=== PATIENT | male | born 1960 | race Caucasian/White ===

== ENCOUNTER → 2018-11-02 06:42 | Outpatient (CLI) | payer OTHER, SELFPAY ==
--- NOTE | 2018-11-02 | DI.ECHO.S_ITS ---
[facility]---------+ [facility] +---------+ : : [address] : [address] [address] : : : : [id number] : : : : Phone: [phone] +---------+ Echocardiogram Report + + :Name: SHELBY TOTH Study Date: 11/02/2018 Height: 74 in : :[facility] Exam Location: IS Weight: 250 lb : : Gender: Male BSA: 2.4 m2 : :: 1960 Age: 58 yrs BP: 130/70 mmHg: :Reason For Study: Murmur : :Ordering Physician: Dr. Dwyer : :Alfred Performed By: Ammy Page : + + Interpretation Summary 1) Moderately enlarged left ventricle with low normal systolic function (EF 50-55%). 2) Normal right ventricular size and function. 3) Both atria are severely dilated. 4) There is an eccentric jet of aortic insufficiency directed against the anterior mitral leaflet. 5) The aortic regurgitation is incompletely characterized given eccentricity of the jet but suspect at least moderate regurgitation. Aortic valve appear trileaflet. 6) The aortic root is mildly dilated at 4.2cm. The ascending aorta is mild- moderately enlarged at 4.2cm. 7) No prior Echo available for comparison. Recommend cardiology consult to further evaluation aortic regurgitation. Procedure: A two-dimensional transthoracic echocardiogram with color flow and Doppler was performed. The study quality was technically adequate. There is no prior echocardiogram noted for this patient. The heart rate ranged between 46-64 bpm during the study. The patient had occasional PVCs during the exam. Left Ventricle: The left ventricle is moderately dilated. Left ventricular wall thickness is borderline increased. The ejection fraction is estimated to be 50-55%. There are no focal wall motion abnormalities. Right Ventricle: The right ventricle is normal size. Right ventricular systolic function is at the lower limits of normal. Atria: Both atria are severely dilated. There is no Doppler evidence for an interatrial shunt. Mitral Valve: The mitral valve is normal in structure and function. There is trace mitral regurgitation. Aortic Valve: The aortic valve is trileaflet. The aortic valve opens well. There is no aortic valve stenosis. There is an eccentric jet of aortic insufficiency directed against the anterior mitral leaflet. Suspect at least moderate regurgitation. Tricuspid Valve: The tricuspid valve is normal in structure and function. There is a trace or physiologic amount of tricuspid regurgitation. Pulmonary artery pressures cannot be estimated because of the lack of a measurable TR jet velocity. Pulmonic Valve: The pulmonic valve is not well visualized. There is no pulmonic valvular regurgitation. Great Vessels: The aortic root is mildly dilated. The ascending aorta is mild-moderately enlarged. The aortic arch is at the upper limits of normal in size. The pulmonary artery is not well visualized, but is probably normal size. The IVC is of normal diameter and collapses greater than 50% with a sniff. This suggests a low right atrial pressure of 3 mm Hg. Pericardium/ Pleura There is no pericardial effusion. There is no pleural effusion. MMode/2D Measurements & Calculations LVIDd: 6.7 cm LVOT diam: 2.8 cm LVIDs: 5.0 cm Ao root diam: 4.2 cm FS: 25.4 % asc Aorta Diam: 4.2 cm EPSS: 1.6 cm Ao Arch Diam (Prox Trans): 3.2 cm IVSd: 1.0 cm LVPWd: 1.3 cm LV boogie. diameter/BSA (cm/m^2): 2.8 LV sys. diameter/BSA (cm/m^2): 2.1 LA A2 area: 37.8 cm2 RA long axis: 5.1 cm LA A4 area: 33.9 cm2 RA area: 26.4 cm2 LA length (vol): 7.1 cm RA vol: 116.1 ml LA vol: 153.2 ml RA : 48.6 ml/m2 LA vol index: 64.1 ml/m2 IVC diam: 2.0 cm RVD1 (basal): 4.1 cm RVD2 (mid): 3.6 cm Doppler Measurements & Calculations Ao V2 max: 175.0 cm/sec LVOT Max Ammon: 131.4 cm/sec Ao V2 mean: 121.1 cm/sec LV V1 max P.9 mmHg Ao max P.3 mmHg LV V1 VTI: 29.7 cm Ao mean P.6 mmHg DEBBIE(I,D): 4.7 cm2 Ao V2 VTI: 38.3 cm DEBBIE(V,D): 4.6 cm2 sev ratio: 0.78 DEBBIE indexed to BSA (cm^2/m^2): 2.0 AI P1/2t: 341.3 msec AI dec slope: 276.8 cm/sec2 MV E max ammon: 76.5 cm/sec PA V2 max: 62.9 cm/sec MV A max ammon: 29.1 cm/sec PA V2 mean: 46.5 cm/sec MV E/A: 2.6 PA mean P.95 mmHg Med Peak E' Ammon: 6.0 cm/sec PA Accel Time: 0.15 sec E/E' med: 12.8 Lat Peak E' Ammon: 10.7 cm/sec E/E' lat: 7.1 E/e' average: 10.0 MV dec time: 0.14 sec MV P1/2t: 38.3 msec MV P1/2t max ammon: 76.2 cm/sec SV(LVOT): 181.4 ml MVA(P1/2t): 5.7 cm2 Reading Physician:08:53 AM
== END ==
PROVIDERS: PCP Internal Medicine; Visit Provider Internal Medicine
DX: R01.1 Cardiac murmur, unspecified (principal); I77.89 Other specified disorders of arteries and arterioles
CPT/HCPCS: 93306

== ENCOUNTER → 2019-05-17 07:54 | Outpatient (CLI) | payer OTHER, SELFPAY ==
--- NOTE | 2019-05-17 | DI.ECHO.S_ITS ---
[place] +---------+ [facility] +---------+ : : [address] : [address] [address] : : : : [phone] : : : : Phone: [phone]---------+ Echocardiogram Report + + :Name: SHELBY TOTH Study Date: 05/17/2019 Height: 74 in : :[facility] Weight: 250 lb : : Gender: Male BSA: 2.4 m2 : :: 1960 Age: 58 yrs BP: 132/74 mmHg: :Reason For Study: Aortic valve regurgitation : : Performed By: [facility] Staff : :Referring: CELINA DAILY : + + Interpretation Summary 1) Moderately dilated left ventricle with normal systolic function (EF about 55%). 2) Normal right ventricular size and function. 3) The left atrium is severely dilated. 4) There is probable moderate to severe aortic regurgitation, which is eccentric jet and directed against the anterior mitral leaflet. Etiology unclear. Aortic valve itself appears trileaflet. 5) The aortic root is mildly dilated at 4.0cm. 6) Compared to the Echo done 11/02/2018, no significant change. Procedure: A two-dimensional transthoracic echocardiogram with color flow and Doppler was performed. The study quality was technically adequate. Prior echo performed on 11/02/18. The patient was in normal sinus rhythm during the exam. Left Ventricle: The left ventricle is moderately dilated. There is mild concentric left ventricular hypertrophy. Left ventricular systolic function is normal. Left ventricular ejection fraction is estimated to be 55 +/- 5%. Left ventricular wall motion is normal. Right Ventricle: The right ventricle is normal in size and function. Atria: The left atrium is severely dilated. Right atrial size is normal. The interatrial septum is intact with no evidence for an atrial septal defect. Mitral Valve: The mitral valve is normal in structure and function. There is trace mitral regurgitation. Aortic Valve: The aortic valve is probably trileaflet. The aortic valve opens well. There is no aortic valve stenosis. There is moderate to severe aortic regurgitation. There is an eccentric jet of aortic insufficiency directed against the anterior mitral leaflet. Tricuspid Valve: The tricuspid valve is normal in structure and function. There is trace tricuspid regurgitation. Pulmonary artery pressures cannot be estimated because of the lack of a measurable TR jet velocity. Pulmonic Valve: The pulmonic valve is normal in structure and function. There is trace pulmonic regurgitation. Great Vessels: The aortic root is mildly dilated. The ascending aorta is mildly enlarged. The aortic arch is mildly enlarged. The pulmonary artery is normal size. The IVC is of normal diameter and collapses greater than 50% with a sniff. This suggests a low right atrial pressure of 3 mm Hg. Pericardium/ Pleura There is no pericardial effusion. There is no pleural effusion. MMode/2D Measurements & Calculations LVIDd: 6.6 cm LVOT diam: 2.5 cm LVIDs: 4.6 cm Ao root diam: 4.0 cm FS: 30.6 % asc Aorta Diam: 4.0 cm EPSS: 1.5 cm IVSd: 1.6 cm LVPWd: 1.2 cm LV boogie. diameter/BSA (cm/m^2): 2.8 LV sys. diameter/BSA (cm/m^2): 1.9 LA A2 area: 28.5 cm2 RA long axis: 4.7 cm LA A4 area: 32.6 cm2 RA area: 16.6 cm2 LA length (vol): 6.5 cm RA vol: 49.6 ml LA vol: 121.2 ml RA : 20.8 ml/m2 LA vol index: 50.7 ml/m2 IVC diam: 1.4 cm TAPSE: 2.4 cm Doppler Measurements & Calculations Ao V2 max: 184.9 cm/sec LVOT Max Ammon: 159.0 cm/sec Ao V2 mean: 131.3 cm/sec LV V1 max P.1 mmHg Ao max P.7 mmHg LV V1 VTI: 41.7 cm Ao mean P.9 mmHg DEBBIE(I,D): 4.5 cm2 Ao V2 VTI: 45.9 cm DEBBIE(V,D): 4.3 cm2 sev ratio: 0.91 DEBBIE indexed to BSA (cm^2/m^2): 1.9 AI P1/2t: 278.0 msec AI dec slope: 472.1 cm/sec2 MV E max ammon: 79.3 cm/sec PA V2 max: 84.5 cm/sec MV A max ammon: 35.3 cm/sec PA V2 mean: 59.5 cm/sec MV E/A: 2.2 PA mean P.6 mmHg Med Peak E' Ammon: 6.9 cm/sec PA Accel Time: 0.15 sec E/E' med: 11.5 Lat Peak E' Ammon: 10.2 cm/sec E/E' lat: 7.7 E/e' average: 9.6 MV dec time: 0.18 sec SV(LVOT): 207.4 ml Reading Physician:11:11 AM
== END ==
PROVIDERS: PCP Internal Medicine; Visit Provider Internal Medicine Cardiovascular Disease
DX: I35.1 Nonrheumatic aortic (valve) insufficiency (principal); I77.810 Thoracic aortic ectasia; I51.7 Cardiomegaly
CPT/HCPCS: 93306

== ENCOUNTER → 2020-05-14 19:34 | Outpatient (ROUT) | payer OTHER, SELFPAY ==
[2020-05-14 20:02] LABS: Aspartate Aminotransferase 29 IU/L (17-59); Blood Urea Nitrogen 21 mg/dL (9-20); Calcium 9.3 mg/dL (8.4-10.2); Carbon Dioxide 29 mmol/L (22-32); Chloride 105 mmol/L (98-107); Cholesterol 202 mg/dL (140-199); Estimated Glomerular Filt Rate > 60.0 mL/min (>60); Glucose 92 mg/dL (70-100); HDL Cholesterol 48 mg/dL (40-60); HEMOLYSIS < 15 (0-50); LDL Cholesterol Calculated 114 mg/dL (<100); Potassium 4.2 mmol/L (3.4-5.1); Sodium 138 mmol/L (137-145); Triglycerides 198 mg/dL (35-150)
== END ==
PROVIDERS: PCP Internal Medicine; Visit Provider Internal Medicine
DX: Z03.818 Encounter for observation for suspected exposure to other biological agents ruled out (principal); E78.2 Mixed hyperlipidemia; I10 Essential (primary) hypertension
CPT/HCPCS: 80048; 80061; 84450; 86769

== ENCOUNTER → 2020-09-12 07:54 | Outpatient (CLI) | payer OTHER, SELFPAY ==
[2020-09-12] MEDS: COVID-19 VACC #1, MRNA(MOD) 100 MCG/0.5 ML VIAL IM (08:02)
== END ==
PROVIDERS: PCP Internal Medicine; Visit Provider Internal Medicine
DX: Z23 Encounter for immunization (principal)
CPT/HCPCS: 0011A; 91301

== ENCOUNTER → 2020-10-10 07:52 | Outpatient (CLI) | payer OTHER, SELFPAY ==
[2020-10-10] MEDS: COVID-19 VACC #2, MRNA(MOD) 100 MCG/0.5 ML VIAL IM (07:59)
== END ==
PROVIDERS: PCP Internal Medicine; Visit Provider Internal Medicine
DX: Z23 Encounter for immunization (principal)
CPT/HCPCS: 0012A; 91301

== ENCOUNTER → 2020-11-22 18:49 | Outpatient (ROUT) | payer OTHER, SELFPAY ==
[2020-11-22 19:18] LABS: Aspartate Aminotransferase 33 IU/L (17-59); BUN Creatinine Ratio 21.7 (6-22); Blood Urea Nitrogen 15 mg/dL (9-20); Calcium 9.4 mg/dL (8.4-10.2); Carbon Dioxide 26 mmol/L (22-32); Chloride 106 mmol/L (98-107); Cholesterol 185 mg/dL (140-199); Estimated Glomerular Filt Rate > 60.0 mL/min (>60); Glucose 101 mg/dL (80-110); HDL Cholesterol 49 mg/dL (40-60); HEMOLYSIS < 15 (0-50); LDL Cholesterol Calculated 117 mg/dL (<100); Potassium 4.3 mmol/L (3.4-5.1); Sodium 138 mmol/L (137-145); Triglycerides 93 mg/dL (35-150)
[2020-11-22 19:47] LABS: Prostate Specific Antigen 0.438 ng/mL (0.10-4.00)
== END ==
PROVIDERS: PCP Internal Medicine; Visit Provider Internal Medicine
DX: Z00.00 Encounter for general adult medical examination without abnormal findings (principal); I10 Essential (primary) hypertension; E78.2 Mixed hyperlipidemia
CPT/HCPCS: 80048; 80061; 84153; 84450

== ENCOUNTER → 2022-10-08 11:55 | Outpatient (CLI) | payer OTHER, SELFPAY ==
[2022-10-08 13:08] LABS: Hematocrit 45.5 % (41-53); Hemoglobin 15.7 g/dL (13.5-17.5); Mean Corpuscular HGB Conc 34.4 % (30-36); Mean Corpuscular Hemoglobin 29.5 PG (26-34); Mean Corpuscular Volume 85.7 fL (80-100); Platelet Count 242 X10^3/uL (150-400); Red Blood Cell Count 5.31 X10^6/uL (4.5-5.9); Red Cell Distribution Width 13.8 % (11.6-14.8); White Blood Cell Count 5.2 X10^3/uL (4.5-11.0)
[2022-10-08 13:33] LABS: Alanine Aminotransferase 39 IU/L (<50); Albumin 4.7 g/dL (3.5-5.0); Albumin Globulin Ratio 1.5 (1.0-2.8); Alkaline Phosphatase 67 U/L (38-126); Aspartate Aminotransferase 27 IU/L (17-59); BUN Creatinine Ratio 21.1 (6-22); Bilirubin Total 1.3 mg/dL (0.2-1.3); Blood Urea Nitrogen 15 mg/dL (9-20); Calcium 9.1 mg/dL (8.4-10.2); Carbon Dioxide 25 mmol/L (22-32); Chloride 103 mmol/L (98-107); Cholesterol 211 mg/dL (140-199); Estimated Glomerular Filt Rate > 60 mL/min (>60); Globulin 3.1 g/dL (1.7-4.1); Glucose 90 mg/dL (80-110); HDL Cholesterol 44 mg/dL (40-60); HEMOLYSIS < 15 (0-50); LDL Cholesterol Calculated 133 mg/dL (<100); Sodium 137 mmol/L (137-145); Total Protein 7.8 g/dL (6.3-8.2); Triglycerides 171 mg/dL (35-150)
[2022-10-08 13:53] LABS: Prostate Specific Antigen Scrn 0.589 ng/mL (0.1-4.0)
[2022-10-08 14:32] LABS: TSH w/ Reflex to FT4 0.89 uIU/mL (0.47-4.68)
== END ==
PROVIDERS: PCP Internal Medicine; Referring Provider Internal Medicine; Visit Provider Internal Medicine
DX: Z00.00 Encounter for general adult medical examination without abnormal findings (principal); E78.2 Mixed hyperlipidemia; I10 Essential (primary) hypertension; I35.1 Nonrheumatic aortic (valve) insufficiency; Z12.5 Encounter for screening for malignant neoplasm of prostate
CPT/HCPCS: 36415; 80053; 80061; 84443; 85027; G0103

== ENCOUNTER → 2023-10-12 09:29 | Outpatient (CLI) | payer OTHER, SELFPAY ==
[2023-10-12 10:22] LABS: Hematocrit 46.2 % (41-53); Hemoglobin 15.6 g/dL (13.5-17.5); Mean Corpuscular HGB Conc 33.8 % (30-36); Mean Corpuscular Hemoglobin 29.3 PG (26-34); Mean Corpuscular Volume 86.8 fL (80-100); Platelet Count 259 X10^3/uL (150-400); Red Blood Cell Count 5.33 X10^6/uL (4.5-5.9); Red Cell Distribution Width 13.8 % (11.6-14.8)
[2023-10-12 10:59] LABS: Alanine Aminotransferase 33 IU/L (<50); Albumin 4.7 g/dL (3.5-5.0); Albumin Globulin Ratio 1.7 (1.0-2.8); Alkaline Phosphatase 67 U/L (38-126); Aspartate Aminotransferase 27 IU/L (17-59); BUN Creatinine Ratio 20.7 (6-22); Bilirubin Total 1.4 mg/dL (0.2-1.3); Blood Urea Nitrogen 17 mg/dL (9-20); Calcium 9.4 mg/dL (8.4-10.2); Carbon Dioxide 26 mmol/L (22-32); Chloride 107 mmol/L (98-107); Cholesterol 178 mg/dL (140-199); Estimated Glomerular Filt Rate > 60 mL/min (>60); Globulin 2.7 g/dL (1.7-4.1); Glucose 96 mg/dL (80-110); HDL Cholesterol 46 mg/dL (40-60); HEMOLYSIS < 15 (0-50); LDL Cholesterol Calculated 106 mg/dL (<100); Potassium 4.5 mmol/L (3.4-5.1); Sodium 138 mmol/L (137-145); Total Protein 7.4 g/dL (6.3-8.2); Triglycerides 131 mg/dL (35-150)
[2023-10-12 11:21] LABS: Prostate Specific Antigen Scrn 0.686 ng/mL (0.1-4.0)
== END ==
PROVIDERS: PCP Internal Medicine; Referring Provider Internal Medicine; Visit Provider Internal Medicine
DX: Z12.5 Encounter for screening for malignant neoplasm of prostate (principal); E78.2 Mixed hyperlipidemia; I35.1 Nonrheumatic aortic (valve) insufficiency; I10 Essential (primary) hypertension
CPT/HCPCS: 36415; 80053; 80061; 85027; G0103

== ENCOUNTER → 2023-10-26 12:05 | Outpatient (CLI) | payer OTHER, SELFPAY ==
--- NOTE | 2023-10-26 12:06 | DI.ECHO.S_ITS ---
[place] +---------+ [facility] : : [address] : : [place] : : [id number] : : Phone: [phone] Echocardiogram Report + + :Name: SHELBY TOTH Study Date: 10/26/2023 Height: 74 in : :Hospital ReadingLocation: Weight: 257 lb : : Gender: Male BSA: 2.4 m2 : :: 1960 Age: 63 yrs BP: 147/84 mmHg: :Reason For Study: AORTIC REGURGITATION : :Ordering Physician: BHARAT, : :WOJCIECH Performed By: Leslye Bunn : :Referring: WOJCIECH NICHOLSON : + + Interpretation Summary The patient was in atrial fibrillation with heart rates between 69-99 bpm during the exam. The left ventricle is severely dilated.LVIDd: 7.6 cm LVIDs: 5.8 cm In May 17, 2019:LVIDd: 6.6 cm LVIDs: 4.6 cm, that time LVEF about 55%. Patient was in sinus rhythm. The estimated left ventricular end diastolic volume is 253 ml. The ejection fraction is estimated to be 40-45%. Compared to the prior exam, the left ventricular function is reduced. There is mild to moderate global hypokinesis of the left ventricle. The right ventricle is normal size. Right ventricular systolic function is at the lower limits of normal. The left atrium is severely dilated. The left atrium has remained unchanged in size since the prior echo exam. Tented mitral leaflets. No obvious mitral valve prolapse or flail leaflet or significant calcification. There is mild to moderate mitral regurgitation. Compared to the prior echo study, there has been an increase in the severity of mitral regurgitation. Tricuspid aortic valve. Opens well. There is moderate aortic regurgitation. AI P1/2t: 498.7 msec Previously moderate to severe. No holosystolic diastolic reversal in descending thoracic aorta. There is mild tricuspid regurgitation. Pulmonary artery pressures cannot be estimated because of the lack of a measurable TR jet velocity. The IVC is of normal diameter and collapses greater than 50% with a sniff. This suggests a low right atrial pressure of 3 mm Hg. Ao root diam: 4.0 cm asc Aorta Diam: 4.0 cm. No significant change in aortic root diameter ascending aorta diameter.BSA: 2.4 m2 BP: 147/84 mmHg Procedure: A two-dimensional transthoracic echocardiogram with color flow and Doppler was performed. The study quality was technically adequate. Comparison is made with the echocardiogram of 05/17/2019. The patient had occasional PVCs during the exam. The patient was in atrial fibrillation with heart rates between 69-99 bpm during the exam. Left Ventricle: There is mild concentric left ventricular hypertrophy. The left ventricle is severely dilated. The estimated left ventricular end diastolic volume is 253 ml. There is no thrombus. The ejection fraction is estimated to be 40-45%. Compared to the prior exam, the left ventricular function is reduced. There is mild to moderate global hypokinesis of the left ventricle. Diastolic function could not be accurately assessed due to atrial fibrillation. E/E' med: 6.1. Right Ventricle: The right ventricle is normal size. Right ventricular systolic function is at the lower limits of normal. Atria: The left atrium is severely dilated. The left atrium has remained unchanged in size since the prior echo exam. The right atrium is borderline dilated. There is no Doppler evidence for an interatrial shunt. Mitral Valve: Tented mitral leaflets. No obvious mitral valve prolapse or flail leaflet or significant calcification. There is mild to moderate mitral regurgitation. Compared to the prior echo study, there has been an increase in the severity of mitral regurgitation. Aortic Valve: The aortic valve is trileaflet. The aortic valve opens well. There is no aortic valve stenosis. There is moderate aortic regurgitation. Tricuspid Valve: The tricuspid valve is normal in structure and function. There is mild tricuspid regurgitation. Pulmonary artery pressures cannot be estimated because of the lack of a measurable TR jet velocity. Pulmonic Valve: The pulmonic valve leaflets are thin and pliable; valve motion is normal. There is trace pulmonic regurgitation. Great Vessels: The aortic root is mildly dilated. The ascending aorta is mildly enlarged. The IVC is of normal diameter and collapses greater than 50% with a sniff. This suggests a low right atrial pressure of 3 mm Hg. Pericardium/ Pleura There is no pericardial effusion. There is no pleural effusion. MMode/2D Measurements & Calculations LVIDd: 7.6 cm LVOT diam: 2.6 cm LVIDs: 5.8 cm Ao root diam: 4.0 cm FS: 23.5 % asc Aorta Diam: 4.0 cm IVSd: 1.2 cm Ao Arch Diam (Prox Trans): 3.9 cm LVPWd: 1.1 cm LV boogie. diameter/BSA (cm/m^2): 3.1 LV sys. diameter/BSA (cm/m^2): 2.4 LA A2 area: 37.8 cm2 RA long axis: 5.3 cm LA A4 area: 37.0 cm2 RA area: 22.5 cm2 LA length (vol): 7.2 cm RA vol: 80.9 ml LA vol: 164.9 ml RA : 33.4 ml/m2 LA vol index: 68.2 ml/m2 IVC diam: 1.7 cm RVD1 (basal): 3.2 cm RVD2 (mid): 3.4 cm TAPSE: 1.7 cm Doppler Measurements & Calculations Ao V2 max: 174.4 cm/sec LVOT Max Ammon: 109.7 cm/sec Ao V2 mean: 129.6 cm/sec LV V1 max P.8 mmHg Ao max P.2 mmHg LV V1 VTI: 23.3 cm Ao mean P.3 mmHg DEBBIE(I,D): 3.4 cm2 Ao V2 VTI: 35.9 cm DEBBIE(V,D): 3.3 cm2 sev ratio: 0.65 DEBBIE indexed to BSA (cm^2/m^2): 1.4 AI P1/2t: 498.7 msec AI dec slope: 255.0 cm/sec2 MV E max ammon: 77.3 cm/sec PA V2 max: 74.5 cm/sec MV A max ammon: 1.6 cm/sec PA V2 mean: 48.0 cm/sec MV E/A: 49.6 PA mean P.1 mmHg Med Peak E' Ammon: 12.6 cm/sec PA pr(Accel): 31.0 mmHg E/E' med: 6.1 Lat Peak E' Ammon: 12.3 cm/sec E/E' lat: 6.3 E/e' average: 6.2 MV dec time: 0.15 sec SV(LVOT): 122.4 ml Reading Physician:03:15 PM
== END ==
LOC: ECHO 12:05
PROVIDERS: PCP Internal Medicine; Referring Provider Internal Medicine; Visit Provider Internal Medicine
DX: I08.3 Combined rheumatic disorders of mitral, aortic and tricuspid valves (principal); I77.810 Thoracic aortic ectasia; I77.89 Other specified disorders of arteries and arterioles
CPT/HCPCS: 93306

== ENCOUNTER → 2024-10-12 10:42 | Outpatient (CLI) | payer OTHER, SELFPAY ==
[2024-10-12 11:13] LABS: Hemoglobin 14.9 g/dL (13.5-17.5); White Blood Cell Count 3.5 X10^3/uL (4.5-11.0)
[2024-10-12 11:47] LABS: Alanine Aminotransferase 29 IU/L (<50); Albumin 4.7 g/dL (3.5-5.0); Albumin Globulin Ratio 2.1 (1.0-2.8); Alkaline Phosphatase 70 U/L (38-126); Aspartate Aminotransferase 31 IU/L (17-59); BUN Creatinine Ratio 21.3 (6-22); Bilirubin Total 0.8 mg/dL (0.2-1.3); Blood Urea Nitrogen 19 mg/dL (9-20); Calcium 9.4 mg/dL (8.4-10.2); Carbon Dioxide 25 mmol/L (22-32); Chloride 106 mmol/L (98-107); Cholesterol 183 mg/dL (140-199); Estimated Glomerular Filt Rate > 60 mL/min (>60); Globulin 2.2 g/dL (1.7-4.1); Glucose 97 mg/dL (70-99); HDL Cholesterol 48 mg/dL (40-60); HEMOLYSIS < 15 (0-50); LDL Cholesterol Calculated 123 mg/dL (<100); Potassium 4.3 mmol/L (3.4-5.1); Sodium 139 mmol/L (137-145); Total Protein 6.9 g/dL (6.3-8.2); Triglycerides 59 mg/dL (35-150)
[2024-10-12 12:12] LABS: Prostate Specific Antigen 0.573 ng/mL (0.10-4.00)
[2024-10-12 13:26] LABS: Hematocrit 43.6 % (41-53); Mean Corpuscular HGB Conc 34.1 % (30-36); Mean Corpuscular Hemoglobin 29.8 PG (26-34); Mean Corpuscular Volume 87.4 fL (80-100); Platelet Count 241 X10^3/uL (150-400); Red Blood Cell Count 4.98 X10^6/uL (4.5-5.9); Red Cell Distribution Width 13.2 % (11.6-14.8)
== END ==
PROVIDERS: PCP Internal Medicine; Referring Provider Internal Medicine; Visit Provider Internal Medicine
DX: Z00.00 Encounter for general adult medical examination without abnormal findings (principal); I10 Essential (primary) hypertension; Z86.16 Personal history of COVID-19
CPT/HCPCS: 36415; 80053; 80061; 84153; 85027